=== PATIENT | female | born 1985 | race Caucasian/White ===

== ENCOUNTER → 2017-12-16 | Outpatient (CLI) | payer OTHER | END | disposition home or self-care (01) | LOC: RAH 07:36 | PROVIDERS: ATTEND Physical Medicine & Rehabilitation | DX: M50.10 Cervical disc disorder with radiculopathy, unspecified cervical region (principal); M48.02 Spinal stenosis, cervical region | CPT/HCPCS: 72141 ==

== ENCOUNTER 2018-01-01 06:00 | Day surgery (SDC) | payer OTHER ==
[2017-12-30 10:58] VITALS: BP 95/65
[2017-12-30 11:12] LABS: BASOPHILS % (AUTO) 0.5 % (0.0-5.0); EOSINOPHILS % (AUTO) 2.9 % (0.0-8.0); HEMATOCRIT 38.1 % (36-48); LYMPHOCYTES % (AUTO) 27.7 % (21.0-51.0); MEAN CORPUSCULAR HEMOGLOBIN 31.1 pg (27.0-33.0); MEAN CORPUSCULAR HGB CONC 34.9 g/dL (32.0-36.0); MEAN CORPUSCULAR VOLUME 89.2 fL (79-99); NEUTROPHILS % (AUTO) 57.9 % (40.0-77.0); PLATELET COUNT (AUTO) 315 K/uL (130-400); RED BLOOD CELL COUNT(AUTO) 4.28 MIL/uL (4.00-5.50); RED CELL DISTRIBUTION WIDTH 12.8 % (11.0-15.5); WHITE BLOOD COUNT (AUTO) 7.4 K/uL (4.8-10.8)
[2017-12-30 11:33] LABS: POTASSIUM 5.1 mmol/L (3.5-5.1)
[2018-01-01] VITALS (17 sets, daily range): BP systolic 94–120; BP diastolic 52–76
[~2018-01-01] VITALS: Ht 165.1 cm; Wt 68.9 kg
[~2018-01-01 06:00] MED LIST: B&C/1TAB2 PO; CHOL500051 PO; FEXO1TAB8 PO; FLUT16H NASAL; GABA-529 PO; KETO10TA2 PO; THYR60TA2 PO; ZINC50TA64 PO; [UNRECOGNIZED DRUG - OTHER] PO; [UNRECOGNIZED DRUG - OTHER] PO; [UNRECOGNIZED DRUG - OTHER] PO; [UNRECOGNIZED DRUG - OTHER] PO; [UNRECOGNIZED DRUG - OTHER] PO; curcumin PO; magnesium PO; saw palmetto PO; selenium PO
[2018-01-01] MEDS ORDERED: LACTATED RINGERS 1000ML 1,000 ML IV ONE (06:31)
[2018-01-01] MEDS: CEFAZOLIN SODIUM 1 GM VIAL ONE ×2 (06:57→07:35)
[2018-01-01] MEDS ORDERED: CEFAZOLIN SODIUM 1 GM VIAL ONE (06:58)
[2018-01-01] MEDS ORDERED: DEXAMETHASONE SOD PHOSPHATE 10MG/ML 1ML VIAL ONE (06:59)
[2018-01-01] MEDS ORDERED: LIDOCAINE PF 2% 5ML ABBOJECT ONE (06:59)
[2018-01-01] MEDS ORDERED: ROCURONIUM 10MG/1ML SYR 10 MG/ML ML ONE (07:00)
[2018-01-01] MEDS ORDERED: FENTANYL CITRATE PF 50 MCG/1 ML 2ML VIAL ONE ×3 (07:00→08:09)
[2018-01-01] MEDS ORDERED: ONDANSETRON HCL 4 MG/2 ML VIAL ONE ×2 (07:00→11:10)
[2018-01-01] MEDS ORDERED: PROPOFOL 10 MG/ML 20ML VIAL IV ONE (07:00)
[2018-01-01] MEDS ORDERED: MIDAZOLAM HCL 1 MG/ML 2ML VIAL ONE (07:00)
[2018-01-01] MEDS ORDERED: NEOSTIGMINE 5MG/5ML SYR IV ONE (07:00)
[2018-01-01] MEDS ORDERED: GLYCOPYRROLATE 1 MG/5 ML SYRINGE ONE (07:00)
[2018-01-01] MEDS ORDERED: BACITRACIN 50,000 UNIT VIAL ONE (07:02)
[2018-01-01] MEDS ORDERED: THROMBIN-JMI 20000 UNIT KIT TP ONE (07:02)
[2018-01-01] MEDS ORDERED: SUCCINYLCHOLINE CHLORIDE 20 MG/ML 10 ML VIAL ONE (08:03)
[2018-01-01] MEDS ORDERED: ARTIFICIAL TEARS 3.5 GM OINTMENT ONE (08:05)
[2018-01-01] MEDS ORDERED: BUPIVACAINE/EPI/PF 0.25% 30ML VIAL IJ ONE (08:10)
[2018-01-01] MEDS ORDERED: KETOROLAC TROMETHAMINE 30MG/ML ONE (09:56)
[2018-01-01] MEDS ORDERED: ONDANSETRON HCL 4 MG/2 ML VIAL IVP STA (11:13)
== END 2018-01-01 11:30 | disposition home or self-care (01) ==
LOC: DAH 06:00
PROVIDERS: ATTEND Neurological Surgery
DX: G56.22 Lesion of ulnar nerve, left upper limb (principal); I10 Essential (primary) hypertension; Z79.899 Other long term (current) drug therapy; Z88.8 Allergy status to other drugs, medicaments and biological substances; E07.9 Disorder of thyroid, unspecified
CPT/HCPCS: 24147; 36415; 64718; 80051; 82948; 84702; 85025; A4218; A4649 ×2; C1713; J0330; J0690 ×2; J1100; J1885; J2001; J2250; J2405 ×2; J2704; J2710; J3010 ×3; J3490 ×2; J7120

== ENCOUNTER 2018-01-08 07:26 | Observation (INO) | payer OTHER ==
[2018-01-06 15:45] VITALS: BP 96/61
[2018-01-06 16:08] LABS: BASOPHILS % (AUTO) 0.4 % (0.0-5.0); EOSINOPHILS % (AUTO) 2.7 % (0.0-8.0); HEMATOCRIT 40.3 % (36-48); LYMPHOCYTES % (AUTO) 13.7 % (21.0-51.0); MEAN CORPUSCULAR HEMOGLOBIN 29.4 pg (27.0-33.0); MEAN CORPUSCULAR HGB CONC 33.2 g/dL (32.0-36.0); MEAN CORPUSCULAR VOLUME 88.4 fL (79-99); MONOCYTES % (AUTO) 7.9 % (3.0-13.0); NEUTROPHILS % (AUTO) 75.3 % (40.0-77.0); NUCLEATED RED BLOOD CELLS 0.1 % (0.0-0.19); PLATELET COUNT (AUTO) 305 K/uL (130-400); RED BLOOD CELL COUNT(AUTO) 4.56 MIL/uL (4.00-5.50); RED CELL DISTRIBUTION WIDTH 12.5 % (11.0-15.5); WHITE BLOOD COUNT (AUTO) 6.8 K/uL (4.8-10.8)
[2018-01-08] VITALS (22 sets, daily range): BP systolic 83–111; BP diastolic 42–76
[~2018-01-08] VITALS: Ht 167.6 cm; Wt 68.3 kg
[~2018-01-08 07:26] MED LIST changes: +BUPIVACAINE/PF 0.25% 30ML VIAL IJ ONE; +LIDOCAINE 1%-EPI 1:100,000 20 ML VIAL IJ ONE; +SULFANILAMIDE 120 GM TUBE VG ONE; +TRAM50TA4 PO
[2018-01-08] MEDS ORDERED: LACTATED RINGERS 1000ML 1,000 ML IV SCH (08:00)
[2018-01-08] MEDS: CEFAZOLIN SODIUM 1 GM VIAL IVP PRN ×2 (08:25→10:24)
[2018-01-08] MEDS ORDERED: CALDOLOR 800MG+NS 250ML 250 ML IV ONE (08:29)
[2018-01-08] MEDS ORDERED: LIDOCAINE 1%-EPI 1:100,000 20 ML VIAL IJ ONE (08:33)
[2018-01-08] MEDS ORDERED: ONDANSETRON HCL 4 MG/2 ML VIAL ONE (09:59)
[2018-01-08] MEDS ORDERED: DEXAMETHASONE SOD PHOSPHATE 10MG/ML 1ML VIAL ONE (09:59)
[2018-01-08] MEDS ORDERED: LIDOCAINE PF 2% 5ML ABBOJECT ONE (09:59)
[2018-01-08] MEDS ORDERED: GLYCOPYRROLATE 1 MG/5 ML SYRINGE ONE (10:00)
[2018-01-08] MEDS ORDERED: FENTANYL CITRATE PF 50 MCG/1 ML 2ML VIAL ONE (10:00)
[2018-01-08] MEDS ORDERED: PROPOFOL 10 MG/ML 20ML VIAL IV ONE (10:00)
[2018-01-08] MEDS ORDERED: ROCURONIUM 10MG/1ML SYR 10 MG/ML ML ONE (10:00)
[2018-01-08] MEDS ORDERED: MIDAZOLAM HCL 1 MG/ML 2ML VIAL ONE (10:00)
[2018-01-08] MEDS ORDERED: NEOSTIGMINE 5MG/5ML SYR IV ONE (10:00)
[2018-01-08] MEDS ORDERED: HYDROMORPHONE 1 MG/1 ML AMP ONE (10:43)
[2018-01-08] MEDS ORDERED: OCTYL 2-CYANOACRYLATE 1 EACH TP ONE (12:07)
[2018-01-08] MEDS ORDERED: ONDANSETRON HCL 4 MG/2 ML VIAL IVP PRN (12:15)
[2018-01-08] MEDS ORDERED: MEPERIDINE-PF 25 MG/ML SYG ONE (12:45)
[2018-01-08] MEDS ORDERED: ONDANSETRON HCL MDV 20ML 2 MG/ML VIAL ONE (12:57)
[2018-01-08] MEDS: DEXTROSE 5 %-0.45 % NACL 1,000 ML IV PRN ×2 (13:50→22:01)
[2018-01-08] MEDS: ACETAMINOPHEN-CODEINE 300/30MG TAB PO PRN ×2 (14:18→15:26)
[2018-01-08] MEDS: CEFAZOLIN SODIUM 1 GM VIAL IVP SCH ×2 (14:19→22:00)
[2018-01-08] MEDS: SIMETHICONE 80 MG TAB.CHEW PO PRN ×2 (18:02→20:38)
[2018-01-08] MEDS ORDERED: PROMETHAZINE HCL 25 MG/ML 1ML AMPULE IM PRN (18:30)
[2018-01-08] MEDS ORDERED: MEPERIDINE-PF 75 MG/ML SYG IM PRN (18:30)
[2018-01-08] MEDS: CALDOLOR 800MG+NS 250ML 250 ML IVPB SCH (20:30)
[2018-01-08] MEDS: DOCUSATE SODIUM 100 MG CAP PO PRN (20:38)
[2018-01-09 00:05] VITALS: BP 101/54
[2018-01-09] MEDS: ACETAMINOPHEN-CODEINE 300/30MG TAB PO PRN ×3 (02:11→13:30)
[2018-01-09 04:06] VITALS: BP 103/55
[2018-01-09] MEDS: CALDOLOR 800MG+NS 250ML 250 ML IVPB SCH (04:47)
[2018-01-09] MEDS: CEFAZOLIN SODIUM 1 GM VIAL IVP SCH (06:05)
[2018-01-09 06:50] LABS: HEMATOCRIT 30.6 % (36-48); MEAN CORPUSCULAR HEMOGLOBIN 30.6 pg (27.0-33.0); MEAN CORPUSCULAR HGB CONC 34.6 g/dL (32.0-36.0); MEAN CORPUSCULAR VOLUME 88.7 fL (79-99); PLATELET COUNT (AUTO) 286 K/uL (130-400); RED BLOOD CELL COUNT(AUTO) 3.45 MIL/uL (4.00-5.50); RED CELL DISTRIBUTION WIDTH 12.6 % (11.0-15.5); WHITE BLOOD COUNT (AUTO) 7.6 K/uL (4.8-10.8)
[2018-01-09 07:18] VITALS: BP 96/43
[2018-01-09] MEDS ORDERED: PROMETHAZINE HCL 25 MG TABLET PO PRN (09:00)
[2018-01-09] MEDS: DOCUSATE SODIUM 100 MG CAP PO PRN (09:41)
[2018-01-09] MEDS: SIMETHICONE 80 MG TAB.CHEW PO PRN ×2 (10:29→13:30)
[2018-01-09 11:13] VITALS: BP 91/61
[2018-01-09] MEDS ORDERED: IBUPROFEN 800 MG TAB PO SCH (12:15)
== END 2018-01-09 15:45 | disposition home or self-care (01) ==
LOC: DAH 07:26 → WSH 07:27 → INTOOBSV 07:27 → DAH 07:27 → WSH 07:28
DX: N80.3 Endometriosis of pelvic peritoneum (principal); N92.0 Excessive and frequent menstruation with regular cycle
CPT/HCPCS: 36415 ×2; 58552; 84702; 85025; 85027; 86850; 86900; 86901; 88307; 96365; 96366 ×2; 96372; 96375; 96376 ×2; A4215 ×2; A4218; A4344; A4600; C1769 ×2; G0168; G0378 ×32; J0690 ×4; J1100; J1170; J1741 ×3; J2001; J2175 ×2; J2250; J2405 ×2; J2550; J2704; J2710; J3010; J3490 ×3; J7030; J7120; Q0169

== ENCOUNTER → 2018-10-05 | Outpatient (CLI) | payer OTHER ==
[~2018-10-05] MED LIST changes: -BUPIVACAINE/PF 0.25% 30ML VIAL IJ ONE; -KETO10TA2 PO; -LIDOCAINE 1%-EPI 1:100,000 20 ML VIAL IJ ONE; -SULFANILAMIDE 120 GM TUBE VG ONE
== END | disposition home or self-care (01) ==
LOC: RAH 07:39
PROVIDERS: ATTEND Physical Medicine & Rehabilitation
DX: M25.422 Effusion, left elbow (principal)
CPT/HCPCS: 73221